=== PATIENT | female | born 1950 | race Caucasian/White ===

== ENCOUNTER → 2018-04-16 17:05 | Outpatient (CLI) | payer MEDICARE, SELFPAY ==
--- NOTE | 2018-04-16 17:09 | DI.RAD.S_ITS ---
PROCEDURE: XR WRIST RT MIN 3V INDICATIONS: right wrist pain fell- FOOSH TECHNIQUE: 4 views of the wrist were acquired. COMPARISON: None. FINDINGS: Bones: No fractures or dislocations. No suspicious bony lesions. Chondrocalcinosis projecting in the ulnocarpal compartment Scaphoid view: No fracture Soft tissues: No suspicious soft tissue calcifications. IMPRESSION: No fracture Dictated by: Sridhar Crowe M.D. on 04/16/2018 at 17:37 Approved by: Sridhar Crowe M.D. on 04/16/2018 at 17:38
== END ==
PROVIDERS: Family Provider Physician Assistant; PCP Physician Assistant
DX: M25.531 Pain in right wrist (principal)
CPT/HCPCS: 73110

== ENCOUNTER 2018-07-18 14:29 | Emergency (ER) | payer MEDICARE, SELFPAY ==
[2018-07-18 14:30] VITALS: BP 133/60; PULSE 63; RESP 16; TEMP 37.2; O2SAT 100; BMI 28.0
--- NOTE | 2018-07-18 14:39 | ED.EPISTAXIS ---
HPI - Epistaxis <LONNIE Lowe - Last Filed: 07/18/18 22:09> General Chief complaint: Nasal Problem Stated complaint: sent by Dr. Vance for nosebleed Time Seen by Provider: 07/18/18 14:39 Source: patient Mode of arrival: ambulatory Limitations: no limitations History of Present Illness HPI Narrative: 67-year-old female here for complaint of having frequent nose bleeds she states apparently weekly she has a nosebleed for the past 8 months. She denies any trauma to the nose. She states that the nose bleeds only last for short period and then stop. She denies being on any blood thinners. 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 She does not having nosebleeds this time. She currently does have an ENT referral and is waiting to get into them in the next several weeks. She denies any other concerns or complaints at this time. MD complaint: epistaxis Location: right nostril Onset (ago): month(s) Duration: intermittent Related Data Home Medications Medication Instructions Recorded Confirmed [VITAMIN D] Q DAY #0 04/02/11 05/20/18 ACETAMINOPHEN 650 mg PO Q6HP #0 07/20/11 05/20/18 Lactobacillus acidophilus 1 tab PO QDAY #0 tab 07/12/16 05/20/18 [MAGNESIUM] 1 cap PO QDAY #0 09/10/16 05/20/18 Previous Rx's Medication Instructions Recorded estradiol [Estrace] 1 mg PO QDAY #90 tab 11/30/16 bupropion HCl [Wellbutrin XL] 300 mg PO Q DAY #90 tab 07/01/17 fluoxetine 20 mg PO QDAY #90 cap 07/01/17 gabapentin 100 mg PO BID #180 cap 07/01/17 meloxicam 15 mg PO QDAYP PRN #90 tab 07/01/17 montelukast 10 mg PO HS #90 tab 07/01/17 diph,pertuss(acel),tet vac(PF) 0.5 ml IM X1 #1 dose 11/05/17 [Adacel(Tdap Adolesn/Adult)(PF)] zolpidem 5 - 10 mg PO HS #14 tab 11/05/17 hepatitis A virus vaccine (PF) 0.5 ml IM X1 #1 ea 12/19/17 [Vaqta (PF)] triamcinolone acetonide 1 ifeanyi TOPICAL BID #45 gm 12/19/17 typhoid polysacch vaccine 25 mcg IM ONCE #1 ea 12/19/17 [Typhim ] trazodone 100 mg PO HS #180 tab 02/24/18 Allergies Allergy/AdvReac Type Severity Reaction Status Date / Time GRASS Allergy Intermediate SNEEZING, Uncoded 03/12/18 12:05 ITCHY WATERY EYES, POST NASAL DRIP AND CONGESTION TREE,[place] Allergy Intermediate SNEEZING, Uncoded 03/12/18 12:05 ITCHY WATERY EYES, POST NASAL DRIP, CONGESTION DUST MITE FECES Allergy Mild NASAL Uncoded 03/12/18 12:05 CONGESTION AND POST NASAL DRIP Review of Systems <LONNIE Lowe - Last Filed: 07/18/18 22:09> Eyes Denies change in vision, Denies eye discharge, Denies irritation and Denies loss of vision ENT Comments: Epistaxis Cardiovascular Denies chest pain, Denies irregular heart rhythm, Denies lightheadedness, Denies palpitations, Denies dyspnea, Denies dyspnea on exertion and Denies orthopnea Respiratory Denies cough, Denies dyspnea, Denies dyspnea on exertion and Denies wheezing Gastrointestinal Gastrointestinal: Denies abdominal pain, Denies change in bowel habits, Denies diarrhea, Denies nausea and Denies vomiting Genitourinary Denies hematuria, Denies flank pain, Denies urinary incontinence and Denies urinary urgency Musculoskeletal Denies back pain, Denies muscle weakness, Denies numbness and Denies tingling Integumentary/Breasts Denies pruritus, Denies erythema, Denies rash and Denies wounds Neurologic Denies confusion, Denies loss of vision, Denies numbness and Denies tingling Psychiatric Denies anxiety, Denies confusion, Denies depression, Denies homicidal ideation and Denies suicidal ideation Endocrine Denies palpitations Hematologic/Lymphatic Denies easy bruising Allergic/Immunologic Denies wheezing Exam <LONNIE Lowe - Last Filed: 07/18/18 22:09> Initial Vital Signs Initial Vital Signs: Vital Signs Temperature 99.0 F 07/18/18 14:30 Pulse Rate 63 07/18/18 14:30 Respiratory Rate 16 07/18/18 14:30 Blood Pressure 133/60 H 07/18/18 14:30 Pulse Oximetry 100 07/18/18 14:30 Const General: cooperative and well developed Nutritional Appearance: well nourished Orientation: alert, awake, oriented x3 and not confused HENAL Nose: external nose normal, nares normal, septum normal and No epistaxis Mouth: oral mucosae normal and moist mucous membranes Eyes Conjunctivae: conjunctivae normal Sclera: sclerae normal Pupils: PERRL EOM: EOM intact bilaterally Resp Effort & Inspection: normal respiratory effort, able to speak in complete sentences, no respiratory distress and no use of accessory muscles Auscultation: clear to auscultation bilaterally, no rales, no rhonchi and no wheezes Cardio Rate: regular rate Rhythm: regular rhythm Heart Sounds: no click, no gallops, no murmurs and no rubs Skin General: no rashes or lesions noted, No jaundice and No petechiae Neuro General: alert, oriented x3, gait normal and no focal motor deficits Speech: speech normal <Rome Chavez MD - Last Filed: 07/20/18 07:29> Initial Vital Signs Initial Vital Signs: Vital Signs Temperature 99.0 F 07/18/18 14:30 Pulse Rate 63 07/18/18 14:30 Respiratory Rate 16 07/18/18 14:30 Blood Pressure 133/60 H 07/18/18 14:30 Pulse Oximetry 100 07/18/18 14:30 Course <LONNIE Lowe - Last Filed: 07/18/18 22:09> Vital Signs - 8 hr 07/18/18 14:30 Temperature 99.0 F Pulse Rate 63 Respiratory Rate 16 Blood Pressure 133/60 H Pulse Oximetry 100 <Rome Chavez MD - Last Filed: 07/20/18 07:29> Vital Signs - 8 hr 07/18/18 14:30 Temperature 99.0 F Pulse Rate 63 Respiratory Rate 16 Blood Pressure 133/60 H Pulse Oximetry 100 MDM - Epistaxis <LONNIE Lowe - Last Filed: 07/18/18 22:09> MDM Narrative Medical decision making narrative: On exam no source of bleeding was able to be identified on examination to the Nares. Recommended obtaining CBC Chem panel and INR to ensure no bleeding abnormalities patient refused. She will follow up with ENT as scheduled. Follow up with primary care provider. Return emergency room for any worsening symptoms. Discharge Plan Departure Patient Disposition: Home Clinical Impression: Epistaxis, recurrent Discharge Date/Time: 07/18/18 15:01 Instructions: DI for Nosebleed Activity Restrictions/Additional Instructions: Source of the nose bleed is not seen in emergency room today. Recommend obtaining basic labs to ensure no bleeding abnormalities with primary care. Follow up with ENT as scheduled. For any worsening symptoms return to the emergency room Prescriptions: No Action [VITAMIN D] Q DAY Qty: 0 RF: 0 ACETAMINOPHEN 650 mg PO Q6HP Qty: 0 RF: 0 Lactobacillus acidophilus 1 EACH capsule 1 tab PO QDAY Qty: 0 RF: 0 [MAGNESIUM] 1 cap PO QDAY Qty: 0 RF: 0 estradiol [Estrace] 1 MG tablet 1 mg PO QDAY Qty: 90 RF: 3 meloxicam 15 MG tablet 15 mg PO QDAYP PRNQty: 90 RF: 3 montelukast 10 MG tablet 10 mg PO HS Qty: 90 RF: 3 gabapentin 100 MG capsule 100 mg PO BID Qty: 180 RF: 3 fluoxetine 20 MG capsule 20 mg PO QDAY Qty: 90 RF: 3 bupropion HCl [Wellbutrin XL] 300 MG tablet extended release 24 hr 300 mg PO Q DAY Qty: 90 RF: 3 zolpidem 10 MG tablet 5 - 10 mg PO HS Qty: 14 RF: 0 diph,pertuss(acel),tet vac(PF) [Adacel(Tdap Adolesn/Adult)(PF)] 0.5 ML suspension 0.5 ml IM X1 Qty: 1 RF: 0 typhoid polysacch vaccine [Typhim ] 25 MCG/0.5 ML syringe 25 mcg IM ONCE Qty: 1 RF: 0 hepatitis A virus vaccine (PF) [Vaqta (PF)] 25 UNIT/0.5 ML suspension 0.5 ml IM X1 Qty: 1 RF: 1 triamcinolone acetonide 0.5 % cream 1 ifeanyi Topical BID Qty: 45 RF: 0 trazodone 50 MG tablet 100 mg PO HS Qty: 180 RF: 1 Referrals: Marli Vance PA-C [Primary Care Provider] - Stand Alone Forms: Against Medical Advice <Rome Chavez MD - Last Filed: 07/20/18 07:29> Sign Out Provider Sign Out Attestation: The PA/CUBING MACHINE TENDER functioned independently for the care of this pt, I was available, but not asked to participate in care. I am unable to determine appropriateness of management without personally examining the pt.
== END 2018-07-18 15:01 | disposition home or self-care (01) ==
PROVIDERS: Emergency Provider Nurse Practitioner Family; Family Provider Physician Assistant; PCP Physician Assistant
DX: R04.0 Epistaxis (principal)
CPT/HCPCS: 99281; 99282

== ENCOUNTER → 2018-12-04 14:57 | Outpatient (CLI) | payer MEDICARE, SELFPAY ==
[2018-12-04 15:41] LABS: Add Manual Diff / Slide Review NO; Basophils Percent Auto 0.6 % (0-2); Eosinophils Percent Auto 2.3 % (2-4); Hematocrit 40.6 % (36-46); Hemoglobin 13.6 g/dL (12.0-16.0); Lymphocytes Percent Auto 24.2 % (25-40); Mean Corpuscular HGB Conc 33.5 % (30-36); Mean Corpuscular Hemoglobin 29.6 PG (26-34); Mean Corpuscular Volume 88.5 fL (80-100); Monocytes Percent Auto 5.9 % (3-14); Neutrophils Absolute Auto 4700 /uL (1500-7000); Platelet Count 279 X10^3/uL (150-400); Red Blood Cell Count 4.59 X10^6/uL (4.0-5.2); Red Cell Distribution Width 13.7 % (11.6-14.8)
[2018-12-04 16:11] LABS: Alanine Aminotransferase 32 IU/L (9-52); Albumin 4.2 g/dL (3.5-5.0); Albumin Globulin Ratio 1.6 (1.0-2.8); Alkaline Phosphatase 56 U/L (38-126); Aspartate Aminotransferase 35 IU/L (14-36); BUN Creatinine Ratio 27.1 (6-22); Bilirubin Total 0.4 mg/dL (0.2-1.3); Blood Urea Nitrogen 19 mg/dL (7-17); Calcium 9.2 mg/dL (8.4-10.2); Carbon Dioxide 29 mmol/L (22-32); Chloride 101 mmol/L (98-107); Estimated Glomerular Filt Rate > 60.0 mL/min (>60); Globulin 2.7 g/dL (1.7-4.1); Glucose 87 mg/dL (80-110); HEMOLYSIS 35 (0-50); Potassium 4.8 mmol/L (3.4-5.1); Sodium 138 mmol/L (137-145); Total Protein 6.9 g/dL (6.3-8.2)
== END ==
PROVIDERS: PCP Physician Assistant; Visit Provider Physician Assistant
DX: G14 Postpolio syndrome (principal); R19.7 Diarrhea, unspecified; R20.2 Paresthesia of skin
CPT/HCPCS: 36415; 80053; 85025

== ENCOUNTER → 2019-03-05 15:01 | Outpatient (CLI) | payer MEDICARE, SELFPAY ==
--- NOTE | 2019-03-05 15:04 | DI.RAD.S_ITS ---
PROCEDURE: XR LUMBAR SPINE 2-3V INDICATIONS: numbness/tingling lateral RLE;LBP;post polio syndrome LLE TECHNIQUE: 3 views of the lumbar spine were acquired. COMPARISON: None. FINDINGS: Bones: 5 [id number] vertebrae are present. There is mild levoscoliosis; otherwise normal bony alignment. No vertebral body compression fractures. No suspicious bony lesions. There is degenerative disc disease, severe at L2-L3, and mild at L1-L2 and L3-L4. Soft tissues: Overlying bowel gas pattern is normal. No suspicious soft tissue calcifications. IMPRESSION: Severe degenerative disc disease. Dictated by: Carmen Beltran M.D. on 03/05/2019 at 17:10 Approved by: Carmen Beltran M.D. on 03/05/2019 at 17:11
== END ==
PROVIDERS: Family Provider Physician Assistant; PCP Physician Assistant; Visit Provider Physician Assistant
DX: M54.5 Low back pain (principal); M51.36 Other intervertebral disc degeneration, lumbar region; R20.2 Paresthesia of skin; Z86.12 Personal history of poliomyelitis
CPT/HCPCS: 72100

== ENCOUNTER → 2019-04-21 12:48 | Outpatient (CLI) | payer MEDICARE, SELFPAY ==
--- NOTE | 2019-04-21 | DI.US.S_ITS ---
PROCEDURE: US ARTERIAL DUPLEX LE RT INDICATIONS: CALF PAIN WHILE DRIVING TECHNIQUE: Color and pulse Doppler interrogation was performed of the right lower extremity arterial system, with image documentation. COMPARISON: None. FINDINGS: Common femoral artery: 173 cm/sec, with triphasic flow. Deep femoral artery: 84 cm/sec, with triphasic flow. Proximal superficial femoral artery: 140 cm/sec, with triphasic flow. Mid superficial femoral artery: 120 cm/sec, with triphasic flow. Distal superficial femoral artery: 102 cm/sec, with triphasic flow. Popliteal artery: 73 cm/sec, with triphasic flow. Posterior tibial artery: 116 cm/sec, with triphasic flow. Anterior tibial artery/dorsalis pedis: 79 cm/sec, with biphasic flow. Green-scale imaging description: No plaque IMPRESSION: No evidence of hemodynamically significant focal stenosis. Dictated by: Sridhar Crowe M.D. on 04/21/2019 at 17:19 Approved by: Sridhar Crowe M.D. on 04/21/2019 at 17:20
--- NOTE | 2019-04-21 12:57 | DI.US.S_ITS ---
PROCEDURE: US PERIPH VENOUS LOW EXTREM RT INDICATIONS: CALF PAIN AFTER EXTENDED DRIVING TECHNIQUE: Real-time imaging, as well as color and pulse Doppler interrogation, were performed of the lower extremity deep veins from the inguinal ligament to the popliteal fossa. COMPARISON: None. FINDINGS: The common femoral, femoral and popliteal veins are normally compressible, and free of intraluminal thrombus. Color and pulse Doppler demonstrate normal phasic intraluminal flow. There is normal augmentation response to distal compression maneuver. IMPRESSION: 1. No evidence of deep venous thrombosis in the right lower extremity. Dictated by: Tho Will M.D. on 04/21/2019 at 13:55 Approved by: Tho Will M.D. on 04/21/2019 at 13:55
== END ==
PROVIDERS: Family Provider Physician Assistant; PCP Physician Assistant; Visit Provider Nurse Practitioner Family
DX: M79.661 Pain in right lower leg (principal)
CPT/HCPCS: 93926; 93971

== ENCOUNTER → 2019-07-25 14:34 | Outpatient (CLI) | payer MEDICARE, SELFPAY ==
--- NOTE | 2019-07-25 | DI.MRI.S_ITS ---
PROCEDURE: MR LUMBAR SPINE WO CON INDICATIONS: Radiculopathy, lumbar region TECHNIQUE: Noncontrast sagittal T1 spin echo and T2 fast echo, sagittal STIR, axial T1 and T2 fast spin echo through the lumbar spine. In cases with scoliosis, additional coronal T2 fast spin echo may be performed. COMPARISON: None. FINDINGS: Image quality: Excellent. Alignment and Curvature: There is normal bony alignment. Bone Marrow: Marrow is of normal overall signal. No acute vertebral body compression fractures. Spinal Cord: Conus medullaris terminates at the L1 level. Visualized cord demonstrates normal signal and size. Paraspinous Soft Tissues: No paravertebral masses. L1-L2: Slight degenerative disc disease with a small posterior transverse disc bulge. No spinal or foraminal stenosis found. L2-L3: The degenerative disc disease at this level is moderate to moderately severe, with prominent disc height reduction and near [id number]-sm-[id number] articulation at the endplates. Facet osteoarthritis is mild to moderate at this level leading to foraminal stenosis that appears slightly greater on the right than the left, with potential for asymmetric right greater than left nerve root impingement. L3-L4: The degenerative changes at this level are minimal, no spinal or foraminal stenosis is present. L4-L5: Minimal degenerative disc disease, and facet osteoarthritis. No appreciable spinal or foraminal stenosis. L5-S1: Degenerative changes are minimal, no spinal or foraminal stenosis. IMPRESSION: The degenerative changes along the lumbosacral spine are relatively mild except that L2-L3 where moderate to moderately severe degenerative disc disease and facet osteoarthritis is present. There is near [id number]-xp-[id number] articulation between the adjacent endplates at this level. Right greater than left foraminal stenosis appears present at this level, with potential for asymmetric right-sided predominant L2 nerve root impingement. A disc herniation is not found. Dictated by: Danilo Solitario M.D. on 07/27/2019 at 9:44 Approved by: Danilo Solitario M.D. on 07/27/2019 at 9:50
== END ==
PROVIDERS: PCP Physician Assistant; Visit Provider Physical Medicine & Rehabilitation
DX: M54.16 Radiculopathy, lumbar region (principal)
CPT/HCPCS: 72148

== ENCOUNTER → 2019-07-31 11:26 | Outpatient (CLI) | payer MEDICARE, SELFPAY ==
--- NOTE | 2019-07-31 11:28 | DI.MG.S_ITS ---
BILATERAL DIGITAL SCREENING MAMMOGRAM 3D/2D WITH CAD: 07/31/2019 CLINICAL: Routine screening. Family history of breast cancer. Comparison is made to exams dated: 01/19/2016 mammogram, 05/11/2014 mammogram, 04/08/2012 mammogram, and 12/29/2008 mammogram - [facility]. The tissue of both breasts is heterogeneously dense. This may lower the sensitivity of mammography. Current study was also evaluated with a Computer Aided Detection (CAD) system. There are benign post operative findings in both breasts. No significant masses, calcifications, or other findings are seen in either breast. There has been no significant interval change. IMPRESSION: There is no mammographic evidence of malignancy. A 1 year screening mammogram is recommended. This exam was interpreted at Station ID: [id number]. NOTE: For mammograms, a report in lay terms will be sent to the patient. Approximately 15% of breast malignancies will not be visualized mammographically. In the management of a palpable breast mass, a negative mammogram must not discourage biopsy of a clinically suspicious lesion. Electronically Signed By: Miguel obrien/marlin:07/31/2019 12:04:34 letter sent: Normal Exam ACR BI-RADS Category 2: Benign Finding(s) [id number]
== END ==
PROVIDERS: PCP Physician Assistant; Visit Provider Physician Assistant
DX: Z12.31 Encounter for screening mammogram for malignant neoplasm of breast (principal); Z80.3 Family history of malignant neoplasm of breast
CPT/HCPCS: 77063; 77067

== ENCOUNTER → 2019-08-05 10:41 | Outpatient (CLI) | payer MEDICARE, SELFPAY ==
--- NOTE | 2019-08-05 10:45 | DI.RAD.S_ITS ---
PROCEDURE: XR CLAVICLE RT INDICATIONS: pain and swelling right sternoclavicular joint TECHNIQUE: 2 views of the clavicle were acquired. COMPARISON: None. FINDINGS: Bones: No fractures or dislocations. No suspicious bony lesions. Severe a.c. joint osteoarthritis without trauma. Soft tissues: No suspicious soft tissue calcifications. IMPRESSION: Source of pain and swelling of the sternoclavicular joint is not found. There is severe a.c. joint osteoarthritis is present, however. Dictated by: Danilo Solitario M.D. on 08/05/2019 at 11:22 Approved by: Danilo Solitario M.D. on 08/05/2019 at 11:24
== END ==
PROVIDERS: PCP Physician Assistant; Visit Provider Physician Assistant
DX: M25.511 Pain in right shoulder (principal); M25.811 Other specified joint disorders, right shoulder; M19.011 Primary osteoarthritis, right shoulder
CPT/HCPCS: 73000

== ENCOUNTER → 2019-10-08 09:57 | Outpatient (CLI) | payer MEDICARE, SELFPAY ==
--- NOTE | 2019-10-08 09:59 | DI.RAD.S_ITS ---
PROCEDURE: XR FOOT RT MIN 3V INDICATIONS: rule out fracture for cause of pain TECHNIQUE: 3 views of the foot were acquired. COMPARISON: None. FINDINGS: Bones: Cortical irregularity and ossicle projecting at the base of the fifth metatarsal however radiographically this appears chronic potentially from remote fracture. Elsewhere, no acute fracture notified. Soft tissues: No tibiotalar joint effusion. Achilles tendon appears normal. IMPRESSION: No acute fracture. Please see comment above regarding fifth metatarsal base. If the patient's symptoms do not improve recommend followup radiographs in 10 days to assess for healing sclerosis/occult injury. Dictated by: Sridhar Crowe M.D. on 10/08/2019 at 11:22 Approved by: Sridhar Crowe M.D. on 10/08/2019 at 11:27
== END ==
PROVIDERS: PCP Physician Assistant; Visit Provider Nurse Practitioner
DX: M79.671 Pain in right foot (principal)
CPT/HCPCS: 73630

== ENCOUNTER → 2019-10-26 10:29 | Outpatient (CLI) | payer MEDICARE, SELFPAY ==
--- NOTE | 2019-10-26 10:31 | DI.RAD.S_ITS ---
PROCEDURE: XR FOOT RT MIN 3V INDICATIONS: right foot pain TECHNIQUE: 3 views of the foot were acquired. COMPARISON: [facility], CR, XR FOOT RT MIN 3V, 10/08/2019, 9:56. FINDINGS: Bones: No fractures or dislocations. No suspicious bony lesions. Soft tissues: No tibiotalar joint effusion. Achilles tendon appears normal. IMPRESSION: No trauma found. Small exostosis or old avulsion fragment noted base of the fifth metatarsal bone. This is unchanged from similar plain film imaging earlier this month and therefore the appearance is chronic Dictated by: Danilo Solitario M.D. on 10/26/2019 at 11:12 Approved by: Danilo Solitario M.D. on 10/26/2019 at 11:13
== END ==
PROVIDERS: PCP Physician Assistant; Visit Provider Nurse Practitioner
DX: M79.671 Pain in right foot (principal)
CPT/HCPCS: 73630

== ENCOUNTER → 2020-02-15 10:49 | Outpatient (CLI) | payer MEDICARE, OTHER, SELFPAY ==
--- NOTE | 2020-02-15 10:51 | DI.RAD.S_ITS ---
PROCEDURE: XR ELBOW RT MIN 3V INDICATIONS: Right elbow pain TECHNIQUE: 3 views of the elbow were acquired. COMPARISON: None. FINDINGS: Bones: No fractures or dislocations. No suspicious bony lesions. Soft tissues: No elbow joint effusion. No suspicious soft tissue calcifications. IMPRESSION: No elbow fracture or dislocation. No joint effusion. Dictated by: Byron Hairston M.D. on 02/15/2020 at 11:29 Approved by: Byron Hairston M.D. on 02/15/2020 at 11:30
== END ==
PROVIDERS: PCP Nurse Practitioner; Referring Provider Family Medicine; Visit Provider Family Medicine
DX: M25.521 Pain in right elbow (principal)
CPT/HCPCS: 73080

== ENCOUNTER → 2020-06-17 09:25 | Outpatient (CLI) | payer MEDICARE, OTHER, SELFPAY ==
[2020-06-17 10:37] LABS: Cholesterol 231 mg/dL (140-199); HDL Cholesterol 95 mg/dL (40-60); LDL Cholesterol Calculated 119 mg/dL (<100); Triglycerides 85 mg/dL (35-150)
[2020-06-17 11:16] LABS: Free T4, Direct Thyroxine 0.98 ng/dL (0.78-2.19)
[2020-06-17 11:30] LABS: Thyroid Stimulating Hormone 0.787 uIU/mL (0.47-4.68)
== END ==
PROVIDERS: PCP Nurse Practitioner; Referring Provider Nurse Practitioner; Visit Provider Nurse Practitioner
DX: E78.5 Hyperlipidemia, unspecified (principal); Z79.899 Other long term (current) drug therapy
CPT/HCPCS: 36415; 80061; 84439; 84443; 84481

== ENCOUNTER → 2020-07-05 13:15 | Outpatient (CLI) | payer MEDICARE, OTHER, SELFPAY ==
--- NOTE | 2020-07-05 13:19 | DI.MRI.S_ITS ---
PROCEDURE: MR SHOULDER RT WO CON INDICATIONS: right rotator cuff tear and pain TECHNIQUE: Noncontrast oblique coronal T2 fast spin echo with fat saturation, oblique sagittal T1 spin echo and T2 fast spin echo with fat saturation, axial T1 spin echo and T2 fast spin echo with fat saturation through the shoulder. COMPARISON: None. FINDINGS: Image quality: Excellent. Rotator cuff: Full-thickness tear of the supraspinatus tendon measuring 1.5 cm in the AP dimension on sagittal image 7/10. There is also edema and T2 hyperintensity at the musculotendinous junction of the infraspinatus, which could be related to acute strain. There is adjacent superficial fascial fluid. There is full-thickness tear at the infraspinatus footprint, measuring approximately 5 mm on coronal image 15/8. Teres minor appears intact. Subscapularis tendinopathy and interstitial tearing. Atrophy of the supraspinatus muscle is present. There is diffuse fatty infiltration of the rotator cuff muscles. He Bones and bursae: No bone marrow contusions or fractures. Moderate hypertrophic acromioclavicular joint degeneration. Acromion demonstrates conventional anatomy, without an os acromiale. Capsule and soft tissues: Labrum: Ill-defined appearance of the anterior and anteroinferior labrum, which could reflect chronic tear or advanced degeneration. There is segmental sclerosis and spurring in the adjacent glenoid. Remainder of labrum appears grossly intact.. Longitudinal T2 hyperintensity seen in the long head biceps tendon keeping with tendinopathy and interstitial tearing. No complete rupture identified. The rotator interval appears normal, without fibrosis. Coracohumeral ligament intact. IMPRESSION: Full-thickness tear involving the supraspinatus tendon footprint and critical zone. Full-thickness tear of the infraspinatus footprint, with additional interstitial tearing and edema at the musculotendinous junction and superficial fascial fluid. This could reflect acute strain. Subscapularis tendinopathy and interstitial tearing Supraspinatus atrophy Probably chronic tear versus advanced degeneration involving the anterior and anteroinferior segment of the labrum. Long head biceps tendinopathy Dictated by: Sridhar Crowe M.D. on 07/05/2020 at 16:18 Approved by: Sridhar Crowe M.D. on 07/05/2020 at 16:28
== END ==
PROVIDERS: PCP Nurse Practitioner; Referring Provider Nurse Practitioner; Visit Provider Nurse Practitioner
DX: M75.121 Complete rotator cuff tear or rupture of right shoulder, not specified as traumatic (principal); M99.07 Segmental and somatic dysfunction of upper extremity; M25.511 Pain in right shoulder; M67.911 Unspecified disorder of synovium and tendon, right shoulder
CPT/HCPCS: 73221

== ENCOUNTER → 2020-09-26 15:33 | Outpatient (CLI) | payer MEDICARE, OTHER, SELFPAY ==
[2020-09-28 06:35] LABS: COVID19 Sendout Not Detected (Not Detect)
== END ==
PROVIDERS: PCP Nurse Practitioner; Visit Provider Physician Assistant
DX: Z11.59 Encounter for screening for other viral diseases (principal)
CPT/HCPCS: 87635

== ENCOUNTER → 2020-09-27 10:53 | Outpatient (CLI) | payer MEDICARE, OTHER, SELFPAY ==
[2020-09-27 11:32] LABS: Add Manual Diff / Slide Review NO; Basophils Absolute Auto 0 /uL (0-100); Basophils Percent Auto 0.5 % (0-2); Eosinophils Absolute Auto 200 /uL (0-450); Eosinophils Percent Auto 3.2 % (2-4); Hemoglobin 13.8 g/dL (12.0-16.0); Lymphocytes Absolute Auto 1200 /uL (1100-4500); Lymphocytes Percent Auto 22.5 % (25-40); Mean Corpuscular HGB Conc 32.7 % (30-36); Mean Corpuscular Hemoglobin 29.3 PG (26-34); Mean Corpuscular Volume 89.5 fL (80-100); Monocytes Absolute Auto 400 /uL (0-900); Neutrophils Absolute Auto 3600 /uL (1500-7000); Neutrophils Percent Auto 66.8 % (50-75); Platelet Count 280 X10^3/uL (150-400); Red Blood Cell Count 4.69 X10^6/uL (4.0-5.2); Red Cell Distribution Width 13.9 % (11.6-14.8); White Blood Cell Count 5.3 X10^3/uL (4.5-11.0)
[2020-09-27 11:57] LABS: Alanine Aminotransferase 17 IU/L (<35); Albumin 4.2 g/dL (3.5-5.0); Albumin Globulin Ratio 1.6 (1.0-2.8); Alkaline Phosphatase 67 U/L (38-126); Aspartate Aminotransferase 22 IU/L (14-36); BUN Creatinine Ratio 21.6 (6-22); Bilirubin Total 0.3 mg/dL (0.2-1.3); Blood Urea Nitrogen 19 mg/dL (7-17); Calcium 9.5 mg/dL (8.4-10.2); Carbon Dioxide 31 mmol/L (22-32); Chloride 102 mmol/L (98-107); Estimated Glomerular Filt Rate > 60.0 mL/min (>60); Globulin 2.7 g/dL (1.7-4.1); Glucose 119 mg/dL (80-110); HEMOLYSIS < 15 (0-50); Potassium 4.1 mmol/L (3.4-5.1); Sodium 137 mmol/L (137-145); Total Protein 6.9 g/dL (6.3-8.2)
== END ==
PROVIDERS: PCP Nurse Practitioner; Referring Provider Registered Nurse; Visit Provider Registered Nurse
DX: Z01.812 Encounter for preprocedural laboratory examination (principal); Z01.818 Encounter for other preprocedural examination
CPT/HCPCS: 36415; 80053; 85025; 93005; 93010

== ENCOUNTER → 2021-06-12 12:51 | Outpatient (CLI) | payer MEDICARE, OTHER, SELFPAY ==
--- NOTE | 2021-06-12 12:52 | DI.RAD.S_ITS ---
PROCEDURE: XR DEXA AXIAL SKELETON INDICATIONS: menopausal COMPARISON: None. FINDINGS: This blank DEXA report has been sent in error by the PACS system. The correct and complete report will be forthcoming in 1-2 days. Thank you for your patience and understanding. Dictated by: Gabriela Esquivel MD, PhD on 06/12/2021 at 17:12 Approved by: Gabriela Esquivel MD, PhD on 06/12/2021 at 17:13
== END ==
PROVIDERS: PCP Nurse Practitioner; Referring Provider Nurse Practitioner; Visit Provider Nurse Practitioner
DX: Z78.0 Asymptomatic menopausal state (principal); Z82.62 Family history of osteoporosis
CPT/HCPCS: 77080

== ENCOUNTER → 2021-06-15 11:18 | Outpatient (CLI) | payer MEDICARE, OTHER, SELFPAY ==
[2021-06-15 12:27] LABS: Hemoglobin A1C% w Est Avg Glu 5.4 % (4.0-6.0)
[2021-06-15 12:48] LABS: Alanine Aminotransferase 23 IU/L (<35); Albumin 4.3 g/dL (3.5-5.0); Albumin Globulin Ratio 1.7 (1.0-2.8); Alkaline Phosphatase 60 U/L (38-126); Aspartate Aminotransferase 27 IU/L (14-36); BUN Creatinine Ratio 18.2 (6-22); Bilirubin Total 0.3 mg/dL (0.2-1.3); Blood Urea Nitrogen 14 mg/dL (7-17); Calcium 9.2 mg/dL (8.4-10.2); Carbon Dioxide 26 mmol/L (22-32); Chloride 103 mmol/L (98-107); Cholesterol 204 mg/dL (140-199); Estimated Glomerular Filt Rate > 60.0 mL/min (>60); Globulin 2.6 g/dL (1.7-4.1); Glucose 93 mg/dL (80-110); HDL Cholesterol 92 mg/dL (40-60); HEMOLYSIS < 15 (0-50); LDL Cholesterol Calculated 90 mg/dL (<100); Potassium 4.4 mmol/L (3.4-5.1); Sodium 137 mmol/L (137-145); Total Protein 6.9 g/dL (6.3-8.2); Triglycerides 111 mg/dL (35-150)
[2021-06-15 12:59] LABS: Free T3, Triiodothyronine Free 2.83 pg/mL (2.77-5.27); Free T4, Direct Thyroxine 1.01 ng/dL (0.78-2.19)
[2021-06-15 13:12] LABS: Thyroid Stimulating Hormone 0.639 uIU/mL (0.47-4.68)
== END ==
PROVIDERS: PCP Nurse Practitioner; Referring Provider Nurse Practitioner; Visit Provider Nurse Practitioner
DX: E78.5 Hyperlipidemia, unspecified (principal); R79.89 Other specified abnormal findings of blood chemistry; Z79.899 Other long term (current) drug therapy; F32.9 Major depressive disorder, single episode, unspecified; I10 Essential (primary) hypertension; R73.01 Impaired fasting glucose
CPT/HCPCS: 36415; 80053; 80061; 83036; 84439; 84443; 84481

== ENCOUNTER → 2021-06-17 12:54 | Outpatient (CLI) | payer MEDICARE, OTHER, SELFPAY ==
--- NOTE | 2021-06-17 12:57 | DI.MG.S_ITS ---
BILATERAL DIGITAL SCREENING MAMMOGRAM 3D/2D WITH CAD: 06/17/2021 CLINICAL: Routine screening. Family history of breast cancer. Comparison is made to exams dated: 07/31/2019 mammogram, 01/19/2016 mammogram, 05/11/2014 mammogram, and 04/08/2012 mammogram - [facility]. The tissue of both breasts is heterogeneously dense. This may lower the sensitivity of mammography. Current study was also evaluated with a Computer Aided Detection (CAD) system. There are benign post operative findings in both breasts. No significant masses, calcifications, or other findings are seen in either breast. There has been no significant interval change. IMPRESSION: BENIGN There is no mammographic evidence of malignancy. A 1 year screening mammogram is recommended. This exam was interpreted at Station ID: [id number]. NOTE: For mammograms, a report in lay terms will be sent to the patient. Approximately 15% of breast malignancies will not be visualized mammographically. In the management of a palpable breast mass, a negative mammogram must not discourage biopsy of a clinically suspicious lesion. Electronically Signed By: Miguel obrien/marlin:06/19/2021 08:18:54 letter sent: Normal Exam ACR BI-RADS Category 2: Benign Finding(s) [id number]
== END ==
PROVIDERS: PCP Nurse Practitioner; Referring Provider Nurse Practitioner; Visit Provider Nurse Practitioner
DX: Z12.31 Encounter for screening mammogram for malignant neoplasm of breast (principal); Z80.3 Family history of malignant neoplasm of breast
CPT/HCPCS: 77063; 77067

== ENCOUNTER → 2021-06-30 18:55 | Outpatient (CLI) | payer MEDICARE, OTHER, SELFPAY ==
--- NOTE | 2021-06-30 18:56 | DI.MRI.S_ITS ---
PROCEDURE: MR KNEE LT WO CON INDICATIONS: Worsening left knee pain TECHNIQUE: Noncontrast sagittal PD fast spin echo and T2 fast spin echo with fat saturation, sagittal 3-D FLASH with fat saturation; coronal T1 spin echo and PD fast spin echo with fat saturation, and axial PD fast spin echo with fat saturation through the knee. COMPARISON: None. FINDINGS: Menisci: Medial meniscus: Ill-defined tear involving the posterior horn and body of the medial meniscus, likely involving the periphery and raising possibility of meniscocapsular separation. Lateral meniscus: Possible subtle nondisplaced tear involving the body, with mild abnormal signal extending to the superior articular surface.. Cruciate ligaments: Anterior cruciate ligament: Ill-defined signal changes and thickening of the anterior cruciate ligament, with numerous periligamentous cysts, suspicious for mucoid degeneration. Technically, low-grade sprain in the differential and recommend clinical correlation. Posterior cruciate ligament: Intact. Medial structures: The medial collateral ligament: Intact. Semimembranosus tendon: Mild insertional tendinopathy and thickening, age indeterminate. Visualized pes anserinus tendons: Intact. Bursal fluid: none. Lateral structures: The lateral collateral ligament intact. Biceps femoris tendon appears intact. Popliteus tendon grossly unremarkable. Iliotibial band appears intact. Anterior structures: Quadriceps tendon: Intact. Medial patellofemoral ligament: Intact. Lateral patellofemoral ligament: Intact. Patellar tendon: Mild tendinopathy. Anterior soft tissues: Prepatellar and superficial infrapatellar subcutaneous edema/fluid. Deep infrapatellar region: Normal. Bones and cartilage: Marrow: No focal marrow contusion or discrete low signal fracture line. Medial compartment: Low-grade surface fraying of the femoral and tibial cartilage. Lateral compartment: Low-grade surface fraying of the femoral cartilage. Patellofemoral compartment: No chondral defect seen. Joint space: Effusion: Moderate joint effusion. Popliteal fossa: Ball's cyst is noted measuring approximately 5 cm in the cephalocaudal dimension. Loose bodies: None. IMPRESSION: Ill-defined tear involving the posterior horn and body of the medial meniscus which involves the periphery and raises the possibility of meniscocapsular separation. Subtle nondisplaced tear involving the body lateral meniscus as above. Early mucoid degeneration involving the anterior cruciate ligament. Associated periligamentous cysts. Mild degenerative joint disease Moderate joint effusion Ball's cyst. Dictated by: Sridhar Crowe M.D. on 07/03/2021 at 9:11 Approved by: Sridhar Crowe M.D. on 07/03/2021 at 9:21
--- NOTE | 2021-06-30 18:56 | DI.MRI.S_ITS ---
PROCEDURE: MR SHOULDER LT WO CON INDICATIONS: Worsening left shoulder pain TECHNIQUE: Noncontrast oblique coronal T2 fast spin echo with fat saturation, oblique sagittal T1 spin echo and T2 fast spin echo with fat saturation, axial T1 spin echo and T2 fast spin echo with fat saturation through the shoulder. COMPARISON: None. FINDINGS: Image quality: Excellent. Rotator cuff: There is high-grade partial thickness tear involving the footprint of the supraspinatus tendon. There is high-grade partial-thickness tear involving both bursal and articular surfaces of the distal infraspinatus tendons. There is a small 3 mm nodular structure adjacent to the infraspinatus tendon with low signal on T1 and T2 weighted images, likely secondary to calcification (calcific tendinitis). There is high-grade partial-thickness tear and tendinitis of the subscapularis tendon. Sagittal images demonstrate no rotator cuff muscle atrophy. Bones and bursae: No bone marrow contusions or fractures. Moderate acromioclavicular and glenohumeral joint degeneration. The acromion demonstrates conventional anatomy, without an os acromiale. There is a small amount of subacromial-subdeltoid bursal fluid. Capsule and soft tissues: There is degenerative labral fraying in the anterior labrum. The long head of the biceps tendon demonstrates normal location and morphology. The rotator interval appears normal, without fibrosis. The coracohumeral ligament is normal in thickness. IMPRESSION: 1. High-grade partial thickness tear of the supraspinatus tendon involving the footprint. 2. High-grade partial thickness tear of the infraspinatus tendon and associated calcific tendinitis. 3. High-grade partial thickness tear of the subscapularis tendon and associated tendinitis. 4. A small amount of subacromial-subdeltoid bursal fluid consistent with bursitis. 5. Moderate acromioclavicular and glenohumeral joint degeneration. 6. Degenerative labral fraying of the anterior labrum. Dictated by: Carmen Beltran M.D. on 07/03/2021 at 11:08 Approved by: Carmen Beltran M.D. on 07/03/2021 at 13:08
== END ==
PROVIDERS: PCP Nurse Practitioner; Referring Provider Nurse Practitioner; Visit Provider Nurse Practitioner
DX: M25.512 Pain in left shoulder (principal); M75.112 Incomplete rotator cuff tear or rupture of left shoulder, not specified as traumatic; M75.32 Calcific tendinitis of left shoulder; M19.012 Primary osteoarthritis, left shoulder; M25.562 Pain in left knee; S83.242A Other tear of medial meniscus, current injury, left knee, initial encounter; S83.281A Other tear of lateral meniscus, current injury, right knee, initial encounter; M17.12 Unilateral primary osteoarthritis, left knee; M25.462 Effusion, left knee; M71.22 Synovial cyst of popliteal space [Baker], left knee; G89.29 Other chronic pain
CPT/HCPCS: 73221; 73721

== ENCOUNTER → 2021-10-02 15:20 | Outpatient (CLI) | payer MEDICARE, OTHER, SELFPAY | PROVIDERS: PCP Nurse Practitioner; Visit Provider Nurse Practitioner | DX: N89.8 Other specified noninflammatory disorders of vagina (principal) | CPT/HCPCS: 87070; 87205 ==

== ENCOUNTER → 2022-04-04 12:39 | Outpatient (CLI) | payer MEDICARE, OTHER, SELFPAY ==
--- NOTE | 2022-04-04 | DI.MRI.S_ITS ---
PROCEDURE: MR LUMBAR SPINE WO CON INDICATIONS: Radiculopathy, lumbar region TECHNIQUE: Noncontrast sagittal T1 spin echo and T2 fast echo, sagittal STIR, and T2 fast spin echo through the lumbar spine. In cases with scoliosis, additional coronal T2 fast spin echo may be performed. COMPARISON: [facility], MR, MR LUMBAR SPINE WO CON, 07/25/2019, 15:01. FINDINGS: Image quality: Excellent. Alignment and Curvature: There is normal bony alignment. Mild convex left curvature of the lumbar spine. Bone Marrow: Modic type 2 reactive endplate changes noted adjacent to the L2-L3 disc. No acute vertebral body compression fractures. Spinal Cord: Conus medullaris terminates at the L1 level. Visualized cord demonstrates normal signal and size. Paraspinous Soft Tissues: No paravertebral masses. T12-L1: Normal appearance. L1-L2: Loss of disc signal and slight loss of disc height. Mild to moderate diffuse disc bulge. Mild narrowing of the central canal. No neural foraminal narrowing. No neural compression. L2-L3: Loss of disc signal and height. Mild to moderate diffuse disc bulge. Small right central/right foraminal disc protrusion. Mild narrowing of the central canal. Moderate right and mild left neural foraminal narrowing. No neural compression. Loss of disc signal. Minimal, diffuse disc bulge. No central stenosis. No neural foraminal narrowing. No neural compression. L3-L4: Loss of disc signal. Minimal, diffuse disc bulge. No central stenosis. No neural foraminal narrowing. No neural compression. L4-L5: Loss of disc signal. Minimal, diffuse disc bulge. No central stenosis. No neural foraminal narrowing. No neural compression. L5-S1: Disc has a normal appearance. Mild right facet hypertrophy. No central stenosis. No neural foraminal narrowing. No neural compression. IMPRESSION: 1. Multilevel degenerative disc disease. 2. No severe central canal narrowing. 3. No severe neural foraminal narrowing. 4. No neural compression. Dictated by: Gabriela Esquivel MD, PhD on 04/04/2022 at 15:14 Approved by: Gabriela Esquivel MD, PhD on 04/04/2022 at 15:19
== END ==
PROVIDERS: PCP Nurse Practitioner; Referring Provider Physical Medicine & Rehabilitation; Visit Provider Physical Medicine & Rehabilitation
DX: M51.16 Intervertebral disc disorders with radiculopathy, lumbar region (principal)
CPT/HCPCS: 72148

== ENCOUNTER → 2022-06-06 10:18 | Outpatient (CLI) | payer MEDICARE, OTHER, SELFPAY ==
[2022-06-06 10:45] LABS: Add Manual Diff / Slide Review NO; Basophils Absolute Auto 0 /uL (0-100); Basophils Percent Auto 0.6 % (0-2); Eosinophils Absolute Auto 200 /uL (0-450); Eosinophils Percent Auto 2.7 % (2-4); Hematocrit 42.2 % (36-46); Lymphocytes Absolute Auto 1100 /uL (1100-4500); Lymphocytes Percent Auto 16.4 % (25-40); Mean Corpuscular HGB Conc 33.2 % (30-36); Mean Corpuscular Volume 87.3 fL (80-100); Monocytes Absolute Auto 400 /uL (0-900); Neutrophils Absolute Auto 5100 /uL (1500-7000); Neutrophils Percent Auto 74.3 % (50-75); Platelet Count 313 X10^3/uL (150-400); Red Blood Cell Count 4.83 X10^6/uL (4.0-5.2); Red Cell Distribution Width 13.7 % (11.6-14.8); White Blood Cell Count 6.8 X10^3/uL (4.5-11.0)
[2022-06-06 11:14] LABS: Alanine Aminotransferase 25 IU/L (<35); Albumin 4.3 g/dL (3.5-5.0); Albumin Globulin Ratio 1.4 (1.0-2.8); Alkaline Phosphatase 68 U/L (38-126); Aspartate Aminotransferase 30 IU/L (14-36); BUN Creatinine Ratio 16.2 (6-22); Bilirubin Total 0.5 mg/dL (0.2-1.3); Blood Urea Nitrogen 12 mg/dL (7-17); Carbon Dioxide 26 mmol/L (22-32); Chloride 104 mmol/L (98-107); Estimated Glomerular Filt Rate > 60 mL/min (>60); Glucose 98 mg/dL (80-110); HEMOLYSIS < 15 (0-50); Sodium 137 mmol/L (137-145); Total Protein 7.3 g/dL (6.3-8.2)
[2022-06-06 11:29] LABS: Free T3, Triiodothyronine Free 2.77 pg/mL (2.77-5.27); Free T4, Direct Thyroxine 1.06 ng/dL (0.78-2.19)
[2022-06-06 11:42] LABS: Thyroid Stimulating Hormone < 0.015 uIU/mL (0.47-4.68)
== END ==
PROVIDERS: PCP Nurse Practitioner; Referring Provider Nurse Practitioner; Visit Provider Nurse Practitioner
DX: F32.9 Major depressive disorder, single episode, unspecified (principal); R53.83 Other fatigue; Z79.899 Other long term (current) drug therapy
CPT/HCPCS: 36415; 80053; 84439; 84443; 84481; 85025

== ENCOUNTER → 2022-06-23 09:43 | Outpatient (CLI) | payer MEDICARE, OTHER, SELFPAY ==
--- NOTE | 2022-06-23 09:46 | DI.MG.S_ITS ---
BILATERAL DIGITAL SCREENING MAMMOGRAM 3D/2D WITH CAD: 06/23/2022 CLINICAL: Routine screening. Family history of breast cancer. Comparison is made to exams dated: 06/17/2021 mammogram, 07/31/2019 mammogram, and 01/19/2016 mammogram - [facility]. There are scattered fibroglandular elements in both breasts. Current study was also evaluated with a Computer Aided Detection (CAD) system. There is a possible new irregular equal density focal asymmetry in the right breast central to the nipple anterior depth. There is a possible new irregular equal density focal asymmetry in the left breast at 1 o'clock anterior depth. No other significant masses or calcifications are seen in either breast. IMPRESSION: INCOMPLETE: NEEDS ADDITIONAL IMAGING EVALUATION The possible new irregular equal density focal asymmetry in the right breast central to the nipple anterior depth most likely is related to previous surgery and is indeterminate. Additional views with possible ultrasound are recommended. The possible new irregular equal density focal asymmetry in the left breast at 1 o'clock anterior depth most likely is related to previous surgery and is indeterminate. Additional views with possible ultrasound are recommended. Based on the Tyrer Cuzick model (a risk assessment model) the patient's lifetime risk is 8.8% and her 10 year risk is 5.2%. According to the ACR, ACS, and NCCN guidelines, an annual breast MRI exam along with mammogram is recommended if the patient's lifetime risk is 20% or greater. This exam was interpreted at Station ID: [id number]. NOTE: For mammograms, a report in lay terms will be sent to the patient. Approximately 15% of breast malignancies will not be visualized mammographically. In the management of a palpable breast mass, a negative mammogram must not discourage biopsy of a clinically suspicious lesion. Electronically Signed By: Jacques Norman M.D. aty/:06/25/2022 07:26:54 letter sent: Additional Imaging Needed ACR BI-RADS Category 0: Incomplete 3340F
== END ==
PROVIDERS: PCP Nurse Practitioner; Referring Provider Nurse Practitioner; Visit Provider Nurse Practitioner
DX: Z12.31 Encounter for screening mammogram for malignant neoplasm of breast (principal); Z80.3 Family history of malignant neoplasm of breast
CPT/HCPCS: 77063; 77067

== ENCOUNTER → 2022-10-17 09:38 | Outpatient (CLI) | payer MEDICARE, OTHER, SELFPAY ==
--- NOTE | 2022-10-17 09:40 | DI.MG.S_ITS ---
BILATERAL DIGITAL DIAGNOSTIC MAMMOGRAM 3D/2D: 10/17/2022 CLINICAL: Additional evaluation requested from prior study. Comparison is made to exams dated: 06/23/2022 mammogram, 06/17/2021 mammogram, and 07/31/2019 mammogram - [facility]. There are scattered areas of fibroglandular density in both breasts (category b / 25%-50% glandular tissue). The focal asymmetry in the right breast central to the nipple anterior depth is not seen in additional views. The focal asymmetry in the left breast at 1 o'clock anterior depth is not seen in additional views. No other significant masses or calcifications are seen in either breast. IMPRESSION: BENIGN The right breast asymmetry seen on the screening mammogram likely respresents superimposed fibroglandular tissue and is benign. The left breast asymmetry seen on the screening mammogram likely respresents superimposed fibroglandular tissue and is benign. There is no mammographic evidence of malignancy. A 1 year screening mammogram is recommended. Based on the Tyrer Cuzick model (a risk assessment model) the patient's lifetime risk is 8.8% and her 10 year risk is 5.2%. According to the ACR, ACS, and NCCN guidelines, an annual breast MRI exam along with mammogram is recommended if the patient's lifetime risk is 20% or greater. This exam was interpreted at Station ID: [id number]. NOTE: For mammograms, a report in lay terms will be sent to the patient. Approximately 15% of breast malignancies will not be visualized mammographically. In the management of a palpable breast mass, a negative mammogram must not discourage biopsy of a clinically suspicious lesion. Electronically Signed By: Fallon brown/:10/17/2022 10:14:18 letter sent: Normal Exam ACR BI-RADS Category 2: Benign Finding(s) 3342F
== END ==
PROVIDERS: PCP Nurse Practitioner; Referring Provider Nurse Practitioner; Visit Provider Nurse Practitioner
DX: R92.8 Other abnormal and inconclusive findings on diagnostic imaging of breast (principal); N64.89 Other specified disorders of breast
CPT/HCPCS: 77066; G0279

== ENCOUNTER → 2023-04-03 11:51 | Outpatient (CLI) | payer MEDICARE, OTHER, SELFPAY ==
[2023-04-03 13:12] LABS: Alanine Aminotransferase 21 IU/L (<35); Albumin 4.2 g/dL (3.5-5.0); Albumin Globulin Ratio 1.6 (1.0-2.8); Alkaline Phosphatase 86 U/L (38-126); Aspartate Aminotransferase 25 IU/L (14-36); BUN Creatinine Ratio 13.6 (6-22); Bilirubin Total 0.4 mg/dL (0.2-1.3); Blood Urea Nitrogen 12 mg/dL (7-17); Carbon Dioxide 30 mmol/L (22-32); Chloride 100 mmol/L (98-107); Cholesterol 234 mg/dL (140-199); Estimated Glomerular Filt Rate > 60 mL/min (>60); Globulin 2.7 g/dL (1.7-4.1); Glucose 93 mg/dL (80-110); HDL Cholesterol 106 mg/dL (40-60); HEMOLYSIS < 15 (0-50); LDL Cholesterol Calculated 110 mg/dL (<100); Potassium 4.3 mmol/L (3.4-5.1); Sodium 137 mmol/L (137-145); Total Protein 6.9 g/dL (6.3-8.2); Triglycerides 89 mg/dL (35-150)
[2023-04-03 13:24] LABS: Free T3, Triiodothyronine Free 3.29 pg/mL (2.77-5.27); Free T4, Direct Thyroxine 0.97 ng/dL (0.78-2.19)
[2023-04-03 15:22] LABS: Microalbumi Creatinin Ratio Ur 4.3 ug/mg CR (<30); Microalbumin Urine Random 0.6 mg/dL (0-1.6)
[2023-04-04 16:02] LABS: Hep C Virus Ab w/Reflex Quant NEGATIVE s/c (NEGATIVE)
== END ==
PROVIDERS: PCP Nurse Practitioner; Referring Provider Nurse Practitioner; Visit Provider Nurse Practitioner
DX: E78.5 Hyperlipidemia, unspecified (principal); Z11.59 Encounter for screening for other viral diseases; F32.9 Major depressive disorder, single episode, unspecified; F90.0 Attention-deficit hyperactivity disorder, predominantly inattentive type; R79.89 Other specified abnormal findings of blood chemistry; Z79.899 Other long term (current) drug therapy
CPT/HCPCS: 36415; 80053; 80061; 82043; 82570; 84439; 84443; 84481; 86803

== ENCOUNTER → 2024-01-27 14:17 | Outpatient (CLI) | payer MEDICARE, OTHER, SELFPAY ==
[2024-01-27 15:14] LABS: Alanine Aminotransferase 15 IU/L (<35); Albumin Globulin Ratio 1.4 (1.0-2.8); Alkaline Phosphatase 67 U/L (38-126); Aspartate Aminotransferase 21 IU/L (14-36); BUN Creatinine Ratio 17.3 (6-22); Bilirubin Total 0.5 mg/dL (0.2-1.3); Blood Urea Nitrogen 14 mg/dL (7-17); Calcium 9.2 mg/dL (8.4-10.2); Carbon Dioxide 28 mmol/L (22-32); Chloride 99 mmol/L (98-107); Cholesterol 216 mg/dL (140-199); Estimated Glomerular Filt Rate > 60 mL/min (>60); Globulin 2.8 g/dL (1.7-4.1); Glucose 91 mg/dL (80-110); HDL Cholesterol 87 mg/dL (40-60); HEMOLYSIS < 15 (0-50); LDL Cholesterol Calculated 110 mg/dL (<100); Potassium 4.2 mmol/L (3.4-5.1); Sodium 135 mmol/L (137-145); Total Protein 6.8 g/dL (6.3-8.2); Triglycerides 95 mg/dL (35-150)
[2024-01-27 15:26] LABS: Free T3, Triiodothyronine Free 3.09 pg/mL (2.77-5.27); Free T4, Direct Thyroxine 0.96 ng/dL (0.78-2.19)
[2024-01-27 15:39] LABS: Thyroid Stimulating Hormone 1.05 uIU/mL (0.47-4.68)
== END ==
PROVIDERS: PCP Nurse Practitioner; Referring Provider Nurse Practitioner; Visit Provider Nurse Practitioner
DX: E78.5 Hyperlipidemia, unspecified (principal); F90.9 Attention-deficit hyperactivity disorder, unspecified type; R79.89 Other specified abnormal findings of blood chemistry; Z79.899 Other long term (current) drug therapy; F90.0 Attention-deficit hyperactivity disorder, predominantly inattentive type
CPT/HCPCS: 36415; 80053; 80061; 84439; 84443; 84481

== ENCOUNTER → 2024-02-08 10:30 | Outpatient (CLI) | payer MEDICARE, OTHER, SELFPAY ==
--- NOTE | 2024-02-08 10:45 | DI.MG.S_ITS ---
BILATERAL DIGITAL SCREENING MAMMOGRAM 3D/2D WITH CAD: 02/08/2024 CLINICAL: Routine screening. Family history of breast cancer. Comparison is made to exams dated: 10/17/2022 mammogram, 06/23/2022 mammogram, and 06/17/2021 mammogram - [facility]. There are scattered areas of fibroglandular density in both breasts (category b / 25%-50% glandular tissue). Current study was also evaluated with a Computer Aided Detection (CAD) system. No significant masses, calcifications, or other findings are seen in either breast. There has been no significant interval change. IMPRESSION: NEGATIVE There is no mammographic evidence of malignancy. A 1 year screening mammogram is recommended. Based on the Tyrer Cuzick model (a risk assessment model) the patient's lifetime risk is 7.9% and her 10 year risk is 5.4%. According to the ACR, ACS, and NCCN guidelines, an annual breast MRI exam along with mammogram is recommended if the patient's lifetime risk is 20% or greater. This exam was interpreted at Station ID: [id number]. NOTE: For mammograms, a report in lay terms will be sent to the patient. Approximately 15% of breast malignancies will not be visualized mammographically. In the management of a palpable breast mass, a negative mammogram must not discourage biopsy of a clinically suspicious lesion. Electronically Signed By: Fallon brown/marlin:02/10/2024 12:19:02 letter sent: Normal Exam ACR BI-RADS Category 1: Negative 3341F
== END ==
PROVIDERS: PCP Nurse Practitioner; Referring Provider Nurse Practitioner; Visit Provider Nurse Practitioner
DX: Z12.31 Encounter for screening mammogram for malignant neoplasm of breast (principal); Z80.3 Family history of malignant neoplasm of breast; R92.323 Mammographic fibroglandular density, bilateral breasts
CPT/HCPCS: 77063; 77067

== ENCOUNTER → 2024-02-10 14:37 | Outpatient (CLI) | payer MEDICARE, OTHER, SELFPAY ==
--- NOTE | 2024-02-10 14:30 | DI.RAD.S_ITS ---
Bone Density Report Name: ROSITA CEDEÑO Age: 73 Sex: Female Ethnicity: White Date of : 1950 Indication: postmenopausal; screening for osteoporosis; Referring Provider: MEETA HAUSER Study: Bone densitometry was performed. Exam Date: February 10, 2024 Accession number: [id number] Bone Density: Region BMD T-score Z-score Classification AP Spine(L1, L3, L4) 1.343 2.6 4.8 Normal Femoral Neck (Left) 0.738 -1.0 0.9 Normal Total Hip (Left) 0.872 -0.6 1.0 Normal Femoral Neck (Right) 0.792 -0.5 1.3 Normal Total Hip (Right) 0.891 -0.4 1.1 Normal Total Hip Mean 0.882 -0.5 1.1 Normal World Health Organization criteria for BMD impression classify patients as: Normal (T-score at or above -1.0), Osteopenia (T-score between -1.0 and -2.5), or Osteoporosis (T-score at or below -2.5). 10-year Fracture Risk: FRAX not reported because: All T-scores for Spine Total, Hip Total, Femoral Neck at or above -1.0 Previous Exams: -- Region Exam Age BMD T-score BMD Change BMD Change Date g/cm2 vs Baseline vs Previous -- AP Spine (L1,L3-L4) 02/10/2024 73 1.343 2.6 -0.002 (-0.1%)# -0.086 (-6.0%)# 06/12/2021 70 1.429 3.4 0.084 (6.3%)* 0.051 (3.7%)* 01/19/2016 65 1.378 3.0 0.033 (2.4%)* 0.033 (2.4%)* 01/13/2008 57 1.345 2.7 Total Hip(Left) 02/10/2024 73 0.872 -0.6 0.027 (3.2%)# -0.028 (-3.2%)# 06/12/2021 70 0.901 -0.3 0.055 (6.5%)* 0.053 (6.3%)* 01/19/2016 65 0.848 -0.8 0.002 (0.2%) 0.002 (0.2%) 01/13/2008 57 0.845 -0.8 Total Hip(Right) 02/10/2024 73 0.891 -0.4 -0.008 (-0.9%)# 0.001 (0.1%)# 06/12/2021 70 0.890 -0.4 -0.009 (-1.0%) -0.019 (-2.0%) 01/19/2016 65 0.909 -0.3 0.010 (1.1%) 0.010 (1.1%) 01/13/2008 57 0.899 -0.4 -- *Denotes significance at 95% confidence level, LSC for AP Spine = 0.022 g/cm2, LSC for Total Hip = 0.027 g/cm2 Rate of change results reflect vertebral levels common to all scans # Denotes dissimilar scan types or analysis methods Impression: The patient has normal bone mass. No significant bone loss was observed. Discussion: BONE DENSITY IS ABOVE THE MINIMUM DESIRABLE LEVEL AT ALL SKELETAL SITES TESTED. This patient's bone mineral density is above the minimum desirable level (T-score -1.0 or better) at all sites measured. The patient should follow a healthful lifestyle (good nutrition with adequate calcium and vitamin D, and appropriate weight-bearing exercise). Follow-Up: Consider repeating this study in 5 years or sooner if there is some new clinical indication. Reported by: MELVIN BEAVER MD on 02/10/2024 3:03:00 PM.
== END ==
LOC: RAD 14:38
PROVIDERS: PCP Nurse Practitioner; Referring Provider Nurse Practitioner; Visit Provider Nurse Practitioner
DX: M81.0 Age-related osteoporosis without current pathological fracture (principal)
CPT/HCPCS: 77080

== ENCOUNTER → 2024-09-23 09:00 | Outpatient (CLI) | payer MEDICARE, OTHER, SELFPAY ==
[2024-09-23 21:27] LABS: Microalbumin Urine Random 49.7 mg/dL (0-1.6)
[2024-09-30 09:45] LABS: Percent Free Testosterone 1.17 % (0.50-2.80); Testosterone Free 0.34 ng/dL (0.10-0.85); Testosterone Total 29.3 ng/dL (7.0-40.0)
== END ==
PROVIDERS: PCP Family Medicine; Referring Provider Nurse Practitioner; Visit Provider Nurse Practitioner
DX: R53.83 Other fatigue (principal); R68.82 Decreased libido; M62.50 Muscle wasting and atrophy, not elsewhere classified, unspecified site; F90.9 Attention-deficit hyperactivity disorder, unspecified type; E78.5 Hyperlipidemia, unspecified; R79.89 Other specified abnormal findings of blood chemistry; F90.0 Attention-deficit hyperactivity disorder, predominantly inattentive type; Z79.899 Other long term (current) drug therapy
CPT/HCPCS: 36415; 82043; 82570; 84402; 84403

== ENCOUNTER → 2024-10-06 14:14 | Outpatient (CLI) | payer MEDICARE, OTHER, SELFPAY ==
--- NOTE | 2024-10-06 14:15 | DI.CT.S_ITS ---
PROCEDURE: CT HEAD/BRAIN WO CON INDICATIONS: VERTIGO, MEMORY LOSS TECHNIQUE: Noncontrast 4.5 mm thick angled axial sections acquired from the foramen magnum to the vertex, with coronal and sagittal reformats. For radiation dose reduction, the following was used: automated exposure control, adjustment of mA and/or kV according to patient size. COMPARISON: [facility], CT, SINUS SCREEN WO CONTRAST, 10/18/2017, 8:21. FINDINGS: Image quality: Mild streak artifact can be seen through the skull base. CSF spaces: Basal cisterns are patent. No extra-axial fluid collections. The ventricles are symmetric in size and shape. Brain: No intracranial bleeds or masses. There is cerebral volume loss for age, with resultant ventricular and sulcal prominence. There are periventricular and deep white matter chronic small vessel ischemic changes. There is intracranial internal carotid artery atherosclerosis. Symmetric calcification can be seen involving the basal ganglia, which is considered to be normal for age. Skull and face: Calvarium and visualized facial bones appear intact, without suspicious lesions. Sinuses: Visualized sinuses and mastoids are clear. IMPRESSION: No imaging explanation is found for this patient's presenting symptoms. Note is made of age-appropriate brain parenchymal volume loss and chronic small vessel ischemic changes. Dictated by: Sumeet Savage M.D. on 10/06/2024 at 15:36 Approved by: Sumeet Savage M.D. on 10/06/2024 at 15:37
== END ==
LOC: CT 14:14
PROVIDERS: PCP Family Medicine; Referring Provider Nurse Practitioner; Visit Provider Nurse Practitioner
DX: R41.3 Other amnesia (principal); R42 Dizziness and giddiness
CPT/HCPCS: 70450

== ENCOUNTER → 2024-11-30 16:18 | Outpatient (CLI) | payer MEDICARE, OTHER, SELFPAY ==
[2024-11-30 16:50] LABS: Add Manual Diff / Slide Review NO; Basophils Absolute Auto 100 /uL (0-100); Eosinophils Absolute Auto 200 /uL (0-450); Eosinophils Percent Auto 3.8 % (2-4); Hematocrit 41.8 % (36-46); Hemoglobin 13.7 g/dL (12.0-16.0); Lymphocytes Absolute Auto 1500 /uL (1100-4500); Mean Corpuscular HGB Conc 32.7 % (30-36); Mean Corpuscular Hemoglobin 29.5 PG (26-34); Mean Corpuscular Volume 90.3 fL (80-100); Monocytes Absolute Auto 400 /uL (0-900); Monocytes Percent Auto 7.1 % (3-14); Neutrophils Absolute Auto 3200 /uL (1500-7000); Neutrophils Percent Auto 60.1 % (50-75); Platelet Count 325 X10^3/uL (150-400); Red Blood Cell Count 4.63 X10^6/uL (4.0-5.2); Red Cell Distribution Width 14.7 % (11.6-14.8); White Blood Cell Count 5.3 X10^3/uL (4.5-11.0)
[2024-11-30 17:07] LABS: Alanine Aminotransferase 17 IU/L (<35); Albumin 3.9 g/dL (3.5-5.0); Albumin Globulin Ratio 1.4 (1.0-2.8); Alkaline Phosphatase 66 U/L (38-126); Aspartate Aminotransferase 23 IU/L (14-36); BUN Creatinine Ratio 20.4 (6-22); Bilirubin Total 0.3 mg/dL (0.2-1.3); Blood Urea Nitrogen 20 mg/dL (7-17); Calcium 9.1 mg/dL (8.4-10.2); Carbon Dioxide 29 mmol/L (22-32); Chloride 103 mmol/L (98-107); Cholesterol 258 mg/dL (140-199); Estimated Glomerular Filt Rate > 60 mL/min (>60); Globulin 2.7 g/dL (1.7-4.1); Glucose 108 mg/dL (80-110); HDL Cholesterol 89 mg/dL (40-60); HEMOLYSIS < 15 (0-50); LDL Cholesterol Calculated 149 mg/dL (<100); Sodium 135 mmol/L (137-145); Total Protein 6.6 g/dL (6.3-8.2); Triglycerides 99 mg/dL (35-150)
[2024-11-30 17:38] LABS: TSH w/ Reflex to FT4 1.21 uIU/mL (0.47-4.68)
== END ==
PROVIDERS: PCP Family Medicine; Referring Provider Family Medicine; Visit Provider Family Medicine
DX: Z91.89 Other specified personal risk factors, not elsewhere classified (principal); E78.5 Hyperlipidemia, unspecified; I10 Essential (primary) hypertension
CPT/HCPCS: 36415; 80053; 80061; 84443; 85025

== ENCOUNTER → 2025-04-01 10:48 | Outpatient (CLI) | payer MEDICARE, OTHER, SELFPAY ==
[2025-04-01 11:10] LABS: Add Manual Diff / Slide Review NO; Basophils Absolute Auto 100 /uL (0-100); Eosinophils Absolute Auto 200 /uL (0-450); Hematocrit 42.2 % (36-46); Hemoglobin 14.2 g/dL (12.0-16.0); Lymphocytes Absolute Auto 1400 /uL (1100-4500); Lymphocytes Percent Auto 24.2 % (25-40); Mean Corpuscular HGB Conc 33.7 % (30-36); Mean Corpuscular Hemoglobin 29.5 PG (26-34); Mean Corpuscular Volume 87.5 fL (80-100); Monocytes Absolute Auto 300 /uL (0-900); Monocytes Percent Auto 6.1 % (3-14); Neutrophils Absolute Auto 3700 /uL (1500-7000); Neutrophils Percent Auto 65.7 % (50-75); Platelet Count 283 X10^3/uL (150-400); Red Blood Cell Count 4.82 X10^6/uL (4.0-5.2); Red Cell Distribution Width 14.5 % (11.6-14.8); White Blood Cell Count 5.7 X10^3/uL (4.5-11.0)
[2025-04-01 11:48] LABS: Alanine Aminotransferase 15 IU/L (<35); Albumin 4.2 g/dL (3.5-5.0); Albumin Globulin Ratio 1.9 (1.0-2.8); Alkaline Phosphatase 66 U/L (38-126); Aspartate Aminotransferase 21 IU/L (14-36); BUN Creatinine Ratio 17.4 (6-22); Bilirubin Total 0.7 mg/dL (0.2-1.3); Blood Urea Nitrogen 16 mg/dL (7-17); Calcium 9.4 mg/dL (8.4-10.2); Carbon Dioxide 26 mmol/L (22-32); Chloride 104 mmol/L (98-107); Estimated Glomerular Filt Rate > 60 mL/min (>60); Globulin 2.2 g/dL (1.7-4.1); Glucose 94 mg/dL (70-99); HEMOLYSIS < 15 (0-50); Potassium 4.3 mmol/L (3.4-5.1); Sodium 138 mmol/L (137-145); Total Protein 6.4 g/dL (6.3-8.2)
[2025-04-01 12:08] LABS: Free T3, Triiodothyronine Free 4.09 pg/mL (2.77-5.27); Free T4, Direct Thyroxine 1.07 ng/dL (0.78-2.19)
[2025-04-01 12:21] LABS: Thyroid Stimulating Hormone 1.03 uIU/mL (0.47-4.68)
== END ==
PROVIDERS: PCP Family Medicine; Referring Provider Nurse Practitioner; Visit Provider Nurse Practitioner
DX: R41.3 Other amnesia (principal); R53.1 Weakness; N17.9 Acute kidney failure, unspecified; E86.0 Dehydration; R44.3 Hallucinations, unspecified; Z01.812 Encounter for preprocedural laboratory examination
CPT/HCPCS: 36415; 80053; 84439; 84443; 84481; 85025

== ENCOUNTER → 2025-04-15 16:21 | Outpatient (CLI) | payer MEDICARE, OTHER, SELFPAY ==
--- NOTE | 2025-04-15 16:23 | DI.MG.S_ITS ---
MM screening mammo BI: 04/15/2025. BI-RADS: 1 CLINICAL: 74-year old female for bilateral screening mammogram. Tyrer-Cuzick lifetime risk of 7.6%. Current reported family history of breast cancer: mother. History of ovarian cancer in one first-degree relative. The patient had a mastopexy in both breasts. PRIOR EXAMS: 02/08/2024, 10/17/2022, 06/23/2022, 06/17/2021. MAMMOGRAPHY TECHNIQUE: 2D and 3D (tomosynthesis) digital mammographic views obtained, with additional images as needed for full coverage. Current study was also evaluated with a Computer Aided Detection (CAD) system. DENSITY C. The breasts are heterogeneously dense, which may obscure small masses. MAMMOGRAPHY FINDINGS Bilateral: No suspicious mass, asymmetry, microcalcification, or other abnormality seen. IMPRESSION: * No evidence of malignancy. RECOMMENDATIONS Bilateral * Annual screening mammography. OVERALL ASSESSMENT CATEGORY BI-RADS-1: Negative. The [employer] recommends annual screening mammography beginning at age 40 for women with average risk of breast cancer. ELECTRONICALLY SIGNED: Miguel Oliver M.D. on 04/16/2025 at 07:53:59 AM PT Interpreting Station ID: [id number]
== END ==
PROVIDERS: PCP Family Medicine; Referring Provider Nurse Practitioner; Visit Provider Nurse Practitioner
DX: Z12.31 Encounter for screening mammogram for malignant neoplasm of breast (principal); Z80.41 Family history of malignant neoplasm of ovary
CPT/HCPCS: 77063; 77067

== ENCOUNTER → 2025-04-24 10:51 | Outpatient (CLI) | payer MEDICARE, OTHER, SELFPAY ==
--- NOTE | 2025-04-24 10:53 | DI.CT.S_ITS ---
PROCEDURE: CT HEAD/BRAIN WO CON INDICATIONS: Confusion, hallucinations TECHNIQUE: Noncontrast 4.5 mm thick angled axial sections acquired from the foramen magnum to the vertex, with coronal and sagittal reformats. For radiation dose reduction, the following was used: automated exposure control, adjustment of mA and/or kV according to patient size. COMPARISON: [facility], CT, CT HEAD/BRAIN WO CON, 10/06/2024, 14:21. FINDINGS: Image quality: Excellent CSF spaces: Basal cisterns are patent. Lateral ventricles are symmetric. Volume: Vascular calcifications. Periventricular white matter disease is commonly seen with chronic microangiopathy. Volume loss is present. These findings are [id number] Brain: Similar basal ganglia mineralization. No acute hemorrhage. No gross acute loss of painter-white differentiation. Craniofacial structures: No significant paranasal sinus opacity. IMPRESSION: No acute intracranial pathology. If there is high concern for parenchymal pathology, consider further evaluation with MRI. Dictated by: Brian Colvin M.D. on 04/24/2025 at 19:36 Approved by: Brian Colvin M.D. on 04/24/2025 at 19:37
== END ==
PROVIDERS: PCP Family Medicine; Referring Provider Nurse Practitioner; Visit Provider Nurse Practitioner
DX: R41.0 Disorientation, unspecified (principal); R44.3 Hallucinations, unspecified
CPT/HCPCS: 70450

== ENCOUNTER → 2025-06-22 16:08 | Outpatient (CLI) | payer MEDICARE, OTHER, SELFPAY | PROVIDERS: PCP Family Medicine; Referring Provider Nurse Practitioner; Visit Provider Nurse Practitioner | DX: R30.0 Dysuria (principal) | CPT/HCPCS: 87077; 87086 ==

== ENCOUNTER → 2025-09-04 12:44 | Outpatient (CLI) | payer MEDICARE, OTHER, SELFPAY ==
[2025-09-04 14:22] LABS: Appearance Urine UA CLOUDY; Bilirubin Urine UA NEGATIVE (NEGATIVE); Color Urine UA YELLOW; Glucose Urine UA NEGATIVE (Negative); Ketones Urine UA NEGATIVE (NEGATIVE); Leukocyte Esterase Urine UA 2+ (NEGATIVE); Nitrite Urine UA NEGATIVE (Negative); Occult Blood Urine UA 3+ (Negative); Protein Urine UA 2+ (Negative); Specific Gravity Urine UA 1.015 (1.000-1.035); Urobilinogen Urine UA 0.2 E.U./dL (0.2)
[2025-09-04 14:33] LABS: pH Urine UA 5.5 (4.5-8.0)
[2025-09-04 14:40] LABS: Culture Indicated Urine Specimen Cultured
== END ==
PROVIDERS: PCP Nurse Practitioner; Referring Provider Nurse Practitioner; Visit Provider Nurse Practitioner
DX: R30.0 Dysuria (principal)
CPT/HCPCS: 81001; 87086

== ENCOUNTER → 2025-11-22 14:09 | Outpatient (CLI) | payer MEDICARE, OTHER, SELFPAY ==
--- NOTE | 2025-11-22 14:13 | DI.RAD.S_ITS ---
PROCEDURE: XR ANKLE RT 2V INDICATIONS: PAIN TECHNIQUE: 3 views of the ankle were acquired. COMPARISON: None. FINDINGS: Bones: No fractures or dislocations. Ankle mortise is normally aligned. No suspicious bony lesions. Soft tissues: No tibiotalar joint effusion. Achilles tendon appears normal. IMPRESSION: No acute bony abnormality or significant effusion. Dictated by: Logan Berumen M.D. on 11/22/2025 at 20:49 Approved by: Logan Berumen M.D. on 11/22/2025 at 20:50
--- NOTE | 2025-11-22 14:14 | DI.RAD.S_ITS ---
PROCEDURE: XR FOOT RT MIN 3V INDICATIONS: PAIN TECHNIQUE: 3 views of the foot were acquired. COMPARISON: [facility], CR, XR FOOT RT MIN 3V, 10/26/2019, 10:28. [facility], CR, XR FOOT RT MIN 3V, 10/08/2019, 9:56. FINDINGS: Bones: No fractures or dislocations. No suspicious bony lesions. Soft tissues: No tibiotalar joint effusion. Achilles tendon appears normal. In these about the change at the peroneus brevis insertion to the 5th metatarsal. IMPRESSION: No acute bony abnormality. Dictated by: Logan Berumen M.D. on 11/22/2025 at 20:50 Approved by: Logan Berumen M.D. on 11/22/2025 at 20:51
== END ==
PROVIDERS: PCP Nurse Practitioner; Referring Provider Nurse Practitioner; Visit Provider Nurse Practitioner
DX: M25.571 Pain in right ankle and joints of right foot (principal); M79.671 Pain in right foot
CPT/HCPCS: 73600; 73630